=== PATIENT | female | born 1965 | race Caucasian/White ===

== ENCOUNTER → 2018-10-04 | Emergency (ER) | payer BC, MEDICAID ==
[~2018-10-04] VITALS: Ht 152.4 cm; Wt 101.8 kg
[~2018-10-04] MED LIST: ESOM40CA PO; ESOM40CA30 PO; HYDR-3972 PO; HYDR-4383 PO; HYDROcodone/acetaminophen 5mg/325mg tablet PO ONE; METF1000 PO; METF500T PO; MULT-1179 PO; PHEN35TA PO; VITA-268 PO
[2018-10-04 12:23] VITALS: BP 146/85
== END | disposition home or self-care (01) ==
LOC: ER 12:15
DX: S92.321A Displaced fracture of second metatarsal bone, right foot, initial encounter for closed fracture (principal); E11.9 Type 2 diabetes mellitus without complications; Z88.2 Allergy status to sulfonamides; Z79.899 Other long term (current) drug therapy; X58.XXXA Exposure to other specified factors, initial encounter; Y93.89 Activity, other specified; Y92.89 Other specified places as the place of occurrence of the external cause; Y99.8 Other external cause status
CPT/HCPCS: 29515; 73630; 99284

== ENCOUNTER 2018-10-12 11:35 | Outpatient (CLI) | payer BC ==
[~2018-10-12] VITALS: Ht 154.9 cm; Wt 93.4 kg
[~2018-10-12 11:35] MED LIST changes: -HYDROcodone/acetaminophen 5mg/325mg tablet PO ONE
[2018-10-12 11:39] VITALS: BP 130/72
[2018-10-16 16:56] VITALS: BP 130/72
== END 2018-10-12 12:51 | disposition home or self-care (01) ==
LOC: ORTHO 11:35
PROVIDERS: ATTEND Nurse Practitioner Family
DX: S92.321A Displaced fracture of second metatarsal bone, right foot, initial encounter for closed fracture (principal); S93.324A Dislocation of tarsometatarsal joint of right foot, initial encounter; E11.319 Type 2 diabetes mellitus with unspecified diabetic retinopathy without macular edema; K21.9 Gastro-esophageal reflux disease without esophagitis; E78.00 Pure hypercholesterolemia, unspecified; Z90.49 Acquired absence of other specified parts of digestive tract; Z88.2 Allergy status to sulfonamides; Z79.84 Long term (current) use of oral hypoglycemic drugs; W18.09XA Striking against other object with subsequent fall, initial encounter; Y93.89 Activity, other specified; Y92.89 Other specified places as the place of occurrence of the external cause; Y99.8 Other external cause status
CPT/HCPCS: 73620; 99215

== ENCOUNTER 2018-11-16 09:36 | Outpatient (CLI) | payer BC | END 2018-11-16 23:59 | disposition home or self-care (01) | LOC: RAD 09:36 | PROVIDERS: ATTEND Nurse Practitioner Family | DX: S92.321D Displaced fracture of second metatarsal bone, right foot, subsequent encounter for fracture with routine healing (principal); S92.341A Displaced fracture of fourth metatarsal bone, right foot, initial encounter for closed fracture; E11.9 Type 2 diabetes mellitus without complications; Z79.84 Long term (current) use of oral hypoglycemic drugs; X58.XXXA Exposure to other specified factors, initial encounter; Y93.89 Activity, other specified; Y92.89 Other specified places as the place of occurrence of the external cause; Y99.8 Other external cause status | CPT/HCPCS: 73718 ==

== ENCOUNTER 2018-11-28 11:16 | Outpatient (CLI) | payer BC ==
[2018-11-28 11:21] VITALS: BP 136/84
== END 2018-11-28 12:05 | disposition home or self-care (01) ==
LOC: ORTHO 11:16
PROVIDERS: ATTEND Nurse Practitioner Family
DX: S92.321G Displaced fracture of second metatarsal bone, right foot, subsequent encounter for fracture with delayed healing (principal); S93.324D Dislocation of tarsometatarsal joint of right foot, subsequent encounter; S93.14 Subluxation of metatarsophalangeal joint; S93.144D Subluxation of metatarsophalangeal joint of right lesser toe(s), subsequent encounter; M85.871 Other specified disorders of bone density and structure, right ankle and foot; E11.9 Type 2 diabetes mellitus without complications; Z98.890 Other specified postprocedural states; Z88.2 Allergy status to sulfonamides; X58.XXXD Exposure to other specified factors, subsequent encounter
CPT/HCPCS: 73630; 99213; A4590

== ENCOUNTER 2018-12-19 10:22 | Outpatient (CLI) | payer BC ==
[2018-12-19 10:26] VITALS: BP 148/88
== END 2018-12-19 11:27 | disposition home or self-care (01) ==
LOC: ORTHO 10:22
PROVIDERS: ATTEND Nurse Practitioner Family
DX: S92.321G Displaced fracture of second metatarsal bone, right foot, subsequent encounter for fracture with delayed healing (principal); S93.325D Dislocation of tarsometatarsal joint of left foot, subsequent encounter; E11.9 Type 2 diabetes mellitus without complications; Z88.2 Allergy status to sulfonamides; Z79.84 Long term (current) use of oral hypoglycemic drugs; X58.XXXD Exposure to other specified factors, subsequent encounter
CPT/HCPCS: 73630; 99213

== ENCOUNTER 2019-01-10 09:37 | Outpatient (CLI) | payer BC ==
[2019-01-10 09:37] VITALS: BP 125/54
== END 2019-01-10 10:13 | disposition home or self-care (01) ==
LOC: ORTHO 09:37
PROVIDERS: ATTEND Nurse Practitioner Family
DX: S92.321G Displaced fracture of second metatarsal bone, right foot, subsequent encounter for fracture with delayed healing (principal); S93.325D Dislocation of tarsometatarsal joint of left foot, subsequent encounter; M79.89 Other specified soft tissue disorders; M77.31 Calcaneal spur, right foot; M19.071 Primary osteoarthritis, right ankle and foot; E11.9 Type 2 diabetes mellitus without complications; Z88.2 Allergy status to sulfonamides; Z79.84 Long term (current) use of oral hypoglycemic drugs; X58.XXXD Exposure to other specified factors, subsequent encounter
CPT/HCPCS: 73630; 99213

== ENCOUNTER 2019-02-07 09:32 | Outpatient (CLI) | payer BC | END 2019-02-07 10:15 | disposition home or self-care (01) | LOC: ORTHO 09:32 | PROVIDERS: ATTEND Nurse Practitioner Family | DX: S62.33 Displaced fracture of neck of other metacarpal bone (principal); M81.0 Age-related osteoporosis without current pathological fracture; E11.9 Type 2 diabetes mellitus without complications; Z79.899 Other long term (current) drug therapy; Z72.89 Other problems related to lifestyle; Z88.2 Allergy status to sulfonamides; W19.XXXD Unspecified fall, subsequent encounter | CPT/HCPCS: 73630; 99213 ==

== ENCOUNTER 2021-11-26 14:19 | Emergency (ER) | payer BC ==
[~2021-11-26] VITALS: Ht 154.9 cm; Wt 105.0 kg
[~2021-11-26 14:19] MED LIST changes: -ESOM40CA30 PO; +ESOM40CA49 PO
[2021-11-26 15:11] VITALS: BP 114/79
[2021-11-26] MEDS ORDERED: POTASSIUM BICARB 20meq eff tab 20 MEQ TABLET.EFF PO ONE (15:50)
[2021-11-26] MEDS ORDERED: furosemide 20MG tablet PO ONE (15:50)
[2021-11-26] MEDS ORDERED: cephalexin 250mg capsule PO ONE (15:50)
[2021-11-26] MEDS ORDERED: CEPH-585 PO (15:57)
[2021-11-26] MEDS ORDERED: FURO-150 PO (15:57)
[2021-11-26] MEDS ORDERED: POTA-207 PO (15:57)
== END 2021-11-26 16:32 | disposition home or self-care (01) ==
LOC: ER 14:21
DX: I87.2 Venous insufficiency (chronic) (peripheral) (principal); L97.801 Non-pressure chronic ulcer of other part of unspecified lower leg limited to breakdown of skin; R09.89 Other specified symptoms and signs involving the circulatory and respiratory systems; R05.9 Cough, unspecified; I50.9 Heart failure, unspecified; E78.00 Pure hypercholesterolemia, unspecified; K21.9 Gastro-esophageal reflux disease without esophagitis; E11.9 Type 2 diabetes mellitus without complications; Z86.14 Personal history of Methicillin resistant Staphylococcus aureus infection; Z90.89 Acquired absence of other organs; Z90.49 Acquired absence of other specified parts of digestive tract; Z98.890 Other specified postprocedural states; Z88.2 Allergy status to sulfonamides; Z79.2 Long term (current) use of antibiotics; Z79.899 Other long term (current) drug therapy
CPT/HCPCS: 99284

== ENCOUNTER 2024-01-10 11:27 | Inpatient (IN) | payer OTHER, MEDICAID ==
[~2024-01-10] VITALS: Ht 154.9 cm; Wt 111.4 kg
[2024-01-10 11:46] LABS: BASOPHILS # (AUTO) 0.1 X10'3 (0-0.2); BASOPHILS % (AUTO) 0.9 % (0-1); EOSINOPHILS # (AUTO) 0.3 X10'3 (0-0.9); EOSINOPHILS % (AUTO) 3.5 % (0-6); HEMATOCRIT 37.7 % (35.0-45.0); HEMOGLOBIN 12.1 g/dl (12.0-16.0); LYMPHOCYTES # (AUTO) 0.8 X10'3 (1.1-4.8); LYMPHOCYTES % (AUTO) 9.5 % (21-51); MEAN CORPUSCULAR HEMOGLOBIN 28.2 PG (27.0-31.0); MEAN CORPUSCULAR HGB CONC 32.1 g/dL (33.0-36.5); MEAN CORPUSCULAR VOLUME 87.8 FL (78-98); MEAN PLATELET VOLUME 8.2 FL (7.4-10.4); MONOCYTES # (AUTO) 0.4 X10'3 (0-0.9); MONOCYTES % (AUTO) 5.1 % (2-12); NEUTROPHILS # (AUTO) 6.6 X10'3 (1.8-7.7); PLATELET COUNT 294 X10'3 (140-440); RED BLOOD COUNT 4.29 X10'6 (4.20-5.60); RED CELL DISTRIBUTION WIDTH 17.1 % (11.5-14.5); WHITE BLOOD COUNT 8.1 X10'3 (4.5-11.0)
[2024-01-10 12:15] LABS: ALANINE AMINOTRANSFERASE 34 U/L (12-78); ALBUMIN 3.5 G/DL (3.4-5.0); ALBUMIN/GLOBULIN RATIO 0.9 (1.1-1.5); ALKALINE PHOSPHATASE 118 IU/L (46-116); ANION GAP 9 (8-16); ASPARTATE AMINO TRANSFERASE 19 U/L (10-37); BILIRUBIN,TOTAL 0.8 MG/DL (0.1-1.0); BLOOD UREA NITROGEN 37 MG/DL (7-18); BUN/CREATININE RATIO 29.1 (10.0-20.0); CALCIUM 8.9 MG/DL (8.5-10.1); CHLORIDE 108 MMOL/L (99-107); CREATININE 1.27 MG/DL (0.40-0.90); GLUCOSE 161 MG/DL (70-104); POTASSIUM 4.7 MMOL/L (3.5-5.1); PRO BRAIN NATRIURETIC PEPTIDE 2808 PG/ML (0-125); SODIUM 144 MMOL/L (135-145); TOTAL CARBON DIOXIDE 27.1 MMOL/L (24-32); TOTAL PROTEIN 7.5 G/DL (6.4-8.2); eCRCL 36 ML/MIN; eGFR 43 ML/MIN
[2024-01-10] MEDS ORDERED: magnesium hydroxide 30ml (MOM) UD suspension PO PRN (13:50)
[2024-01-10] MEDS ORDERED: mag hydrox/Alum hydrox/simeth 30ml oral suspension PO PRN (13:50)
[2024-01-10] MEDS ORDERED: magnesium 2GM in 50ml NS 50 ML IV PRN (13:50)
[2024-01-10] MEDS ORDERED: magnesium Cl slow-release 64mg tablet PO PRN (13:50)
[2024-01-10] MEDS ORDERED: ondansetron/PF 4mg/2ml inj IV PRN (13:50)
[2024-01-10] MEDS ORDERED: magnesium 4gm in 100ml NS 100 ML IV PRN (13:50)
[2024-01-10] MEDS ORDERED: acetaminophen 325mg tablet PO PRN (13:50)
[2024-01-10] MEDS ORDERED: potassium Cl 20 mEq SR tablet PO PRN ×2 (13:50)
[2024-01-10] MEDS ORDERED: potassium Cl 40MEQ/1/2NS 520ml 520 ML IV PRN (13:50)
[2024-01-10] MEDS: digoxin 250mcg (0.25mg) tablet PO STA (13:51)
[2024-01-10] MEDS: furosemide 10 MG/1 ML 10ml inj IV STA (14:14)
[2024-01-10] MEDS: digoxin 125mcg (0.125mg) tablet PO STA (14:14)
[2024-01-10] MEDS ORDERED: ONDA8TAB13 PO (14:21)
[2024-01-10] MEDS ORDERED: FURO40TA4 PO (14:21)
[2024-01-10] MEDS ORDERED: ATOR40TA72 PO (14:21)
[2024-01-10] MEDS ORDERED: RIVA20TA PO (14:21)
[2024-01-10] MEDS ORDERED: METO-411 PO (14:21)
[2024-01-10] MEDS ORDERED: LAN0.125T PO (14:21)
[2024-01-10 14:23] LABS: MAGNESIUM 2.5 MG/DL (1.5-2.4)
[2024-01-10] MEDS ORDERED: rivaroxaban 20mg tablet PO SCH (14:40)
[2024-01-10] MEDS ORDERED: dextrose 50%-water 50ml dispensing syringe IV PRN ×2 (15:05)
[2024-01-10] MEDS ORDERED: DEXTROSE 15 GM of carb/4 tabs (each vial/BOTTLE has 4 tablets) PO PRN ×2 (15:05)
[2024-01-10] MEDS ORDERED: glucagon, human recombinant 1mg kit SUBCUT PRN (15:05)
[2024-01-10 15:24] LABS: HEMOGLOBIN A1C 6.5 % (4.5-6.2)
[2024-01-10] MEDS: MESSAGE TO PHARMACY PO ONE (15:52)
[2024-01-10 16:02] LABS: CHOL/HDL RATIO 2.5 (0.00-4.99); CHOLESTEROL 134 MG/DL (0-200); HDL CHOLESTEROL 53 MG/DL (35-60); LDL CHOLESTEROL 62 MG/DL (50-100); THYROID STIMULATING HORMONE 3.35 ulU/ml (0.34-4.50); TRIGLYCERIDES 83 MG/DL (20-135)
[2024-01-10 19:37] VITALS: BP 116/83; PULSE 100; RESP 18; TEMP 97.5; O2SAT 98
[2024-01-10] MEDS: K and/or MAG REPLACEMENT MC SCH (20:00)
[2024-01-10] MEDS ORDERED: MULT-1085 PO (20:12)
[2024-01-10] MEDS ORDERED: FLU VACC QS2023-24(6MOS UP)/PF 60 MCG/0.5 ML SYRINGE IM ONE (20:15)
[2024-01-10 20:30] VITALS: RESP 18; O2SAT 98
[2024-01-10] MEDS: furosemide 10 MG/1 ML 10ml inj IV SCH (20:49)
[2024-01-10] MEDS: docusate sod 100mg capsule PO SCH (20:49)
[2024-01-10] MEDS: insulin glargine (Lantus) pen - multi-dose SQ SCH (21:00)
[2024-01-10 22:00] VITALS: BP 112/83; PULSE 84; RESP 19; TEMP 97.8; O2SAT 97
[2024-01-11] VITALS (10 sets, daily range): BP systolic 96–123; BP diastolic 59–76; PULSE 83–97; RESP 16–22; TEMP 97.1–98.1; O2SAT 95–100
[2024-01-11 06:09] LABS: BASOPHILS % (AUTO) 0.6 % (0-1); EOSINOPHILS # (AUTO) 0.3 X10'3 (0-0.9); EOSINOPHILS % (AUTO) 4.2 % (0-6); HEMATOCRIT 35.7 % (35.0-45.0); HEMOGLOBIN 11.7 g/dl (12.0-16.0); LYMPHOCYTES # (AUTO) 0.9 X10'3 (1.1-4.8); LYMPHOCYTES % (AUTO) 11.7 % (21-51); MEAN CORPUSCULAR HEMOGLOBIN 28.8 PG (27.0-31.0); MEAN CORPUSCULAR HGB CONC 32.7 g/dL (33.0-36.5); MEAN PLATELET VOLUME 8.3 FL (7.4-10.4); MONOCYTES # (AUTO) 0.6 X10'3 (0-0.9); MONOCYTES % (AUTO) 7.2 % (2-12); NEUTROPHILS # (AUTO) 5.8 X10'3 (1.8-7.7); NEUTROPHILS % (AUTO) 76.3 % (42-75); PLATELET COUNT 257 X10'3 (140-440); RED BLOOD COUNT 4.05 X10'6 (4.20-5.60); RED CELL DISTRIBUTION WIDTH 16.6 % (11.5-14.5); WHITE BLOOD COUNT 7.6 X10'3 (4.5-11.0)
[2024-01-11 06:26] LABS: ALBUMIN 3.1 G/DL (3.4-5.0); ANION GAP 5 (8-16); BLOOD UREA NITROGEN 35 MG/DL (7-18); BUN/CREATININE RATIO 29.2 (10.0-20.0); CALCIUM 8.6 MG/DL (8.5-10.1); CHLORIDE 104 MMOL/L (99-107); GLUCOSE 112 MG/DL (70-104); MAGNESIUM 2.5 MG/DL (1.5-2.4); POTASSIUM 4.1 MMOL/L (3.5-5.1); SODIUM 143 MMOL/L (135-145); TOTAL CARBON DIOXIDE 33.6 MMOL/L (24-32); eCRCL 39 ML/MIN; eGFR 46 ML/MIN
[2024-01-11] MEDS: rivaroxaban 20mg tablet PO SCH (08:51)
[2024-01-11] MEDS: digoxin 125mcg (0.125mg) tablet PO SCH (08:53)
[2024-01-11] MEDS: atorvastatin 20mg tablet PO SCH (08:53)
[2024-01-11] MEDS: metoprolol succinate 25mg (24-HOUR) SR. Tablet PO SCH (08:54)
[2024-01-11] MEDS: furosemide 40mg/4ml inj IV SCH ×2 (08:55→13:30)
[2024-01-11] MEDS: FLU VACC QS2023-24(6MOS UP)/PF 60 MCG/0.5 ML SYRINGE IM ONE (10:16)
[2024-01-11] MEDS: pantoprazole 40mg Tablet.DR PO SCH (13:30)
[2024-01-12] VITALS (7 sets, daily range): BP systolic 100–135; BP diastolic 57–71; PULSE 71–99; RESP 14–21; TEMP 97.9–98.4; O2SAT 93–100
[2024-01-12 06:25] LABS: BASOPHILS % (AUTO) 0.5 % (0-1); EOSINOPHILS # (AUTO) 0.3 X10'3 (0-0.9); EOSINOPHILS % (AUTO) 3.4 % (0-6); HEMATOCRIT 38.2 % (35.0-45.0); HEMOGLOBIN 12.7 g/dl (12.0-16.0); LYMPHOCYTES # (AUTO) 0.8 X10'3 (1.1-4.8); LYMPHOCYTES % (AUTO) 10.1 % (21-51); MEAN CORPUSCULAR HEMOGLOBIN 28.7 PG (27.0-31.0); MEAN CORPUSCULAR HGB CONC 33.2 g/dL (33.0-36.5); MEAN CORPUSCULAR VOLUME 86.3 FL (78-98); MEAN PLATELET VOLUME 8.1 FL (7.4-10.4); MONOCYTES # (AUTO) 0.6 X10'3 (0-0.9); MONOCYTES % (AUTO) 7.7 % (2-12); NEUTROPHILS # (AUTO) 5.8 X10'3 (1.8-7.7); NEUTROPHILS % (AUTO) 78.3 % (42-75); PLATELET COUNT 254 X10'3 (140-440); RED BLOOD COUNT 4.43 X10'6 (4.20-5.60); RED CELL DISTRIBUTION WIDTH 16.3 % (11.5-14.5); WHITE BLOOD COUNT 7.5 X10'3 (4.5-11.0)
[2024-01-12 06:34] LABS: ALBUMIN 2.9 G/DL (3.4-5.0); ANION GAP 8 (8-16); BLOOD UREA NITROGEN 31 MG/DL (7-18); BUN/CREATININE RATIO 28.2 (10.0-20.0); CALCIUM 9.1 MG/DL (8.5-10.1); CHLORIDE 103 MMOL/L (99-107); GLUCOSE 122 MG/DL (70-104); MAGNESIUM 2.2 MG/DL (1.5-2.4); POTASSIUM 4.1 MMOL/L (3.5-5.1); SODIUM 141 MMOL/L (135-145); TOTAL CARBON DIOXIDE 29.6 MMOL/L (24-32); eCRCL 42 ML/MIN; eGFR 51 ML/MIN
[2024-01-12] MEDS ORDERED: pantoprazole 40mg Tablet.DR PO SCH (07:30)
[2024-01-13 02:00] VITALS: BP 100/70; PULSE 62; RESP 17; TEMP 97.1; O2SAT 92
[2024-01-13 06:00] VITALS: BP 117/68; PULSE 97; RESP 17; TEMP 97.7; O2SAT 100
[2024-01-13 06:48] LABS: BASOPHILS % (AUTO) 0.5 % (0-1); EOSINOPHILS # (AUTO) 0.2 X10'3 (0-0.9); EOSINOPHILS % (AUTO) 2.5 % (0-6); HEMATOCRIT 38.1 % (35.0-45.0); HEMOGLOBIN 12.7 g/dl (12.0-16.0); LYMPHOCYTES # (AUTO) 0.9 X10'3 (1.1-4.8); LYMPHOCYTES % (AUTO) 9.7 % (21-51); MEAN CORPUSCULAR HEMOGLOBIN 28.7 PG (27.0-31.0); MEAN CORPUSCULAR HGB CONC 33.3 g/dL (33.0-36.5); MEAN CORPUSCULAR VOLUME 86.2 FL (78-98); MEAN PLATELET VOLUME 8.5 FL (7.4-10.4); MONOCYTES # (AUTO) 0.8 X10'3 (0-0.9); NEUTROPHILS # (AUTO) 6.9 X10'3 (1.8-7.7); NEUTROPHILS % (AUTO) 78.3 % (42-75); PLATELET COUNT 276 X10'3 (140-440); RED BLOOD COUNT 4.42 X10'6 (4.20-5.60); RED CELL DISTRIBUTION WIDTH 16.2 % (11.5-14.5); WHITE BLOOD COUNT 8.9 X10'3 (4.5-11.0)
[2024-01-13 06:56] LABS: ALBUMIN 2.9 G/DL (3.4-5.0); ANION GAP 9 (8-16); BLOOD UREA NITROGEN 34 MG/DL (7-18); CALCIUM 9.1 MG/DL (8.5-10.1); CHLORIDE 102 MMOL/L (99-107); CREATININE 1.31 MG/DL (0.40-0.90); GLUCOSE 185 MG/DL (70-104); MAGNESIUM 2.2 MG/DL (1.5-2.4); POTASSIUM 3.6 MMOL/L (3.5-5.1); SODIUM 141 MMOL/L (135-145); eCRCL 35 ML/MIN; eGFR 42 ML/MIN
[2024-01-13 07:58] VITALS: RESP 17; O2SAT 100
[2024-01-13] MEDS: insulin Lispro (HumaLOG) vial - multi-dose SQ SCH (08:32)
[2024-01-13 10:40] LABS: HBSAG SCREEN Negative (Negative); HEP B CORE AB, IGM Negative (Negative); HEP B CORE AB, TOT Negative (Negative)
[2024-01-13] MEDS ORDERED: RIVA20TA PO (10:50)
[2024-01-13] MEDS ORDERED: LAN0.125T PO (10:50)
[2024-01-13] MEDS ORDERED: ONDA8TAB13 PO (10:50)
[2024-01-13] MEDS ORDERED: PANT40TA54 PO (10:50)
[2024-01-13] MEDS ORDERED: METO-411 PO (10:50)
[2024-01-13] MEDS ORDERED: ATOR40TA72 PO (10:50)
[2024-01-13] MEDS ORDERED: FURO40TA4 PO (10:58)
[2024-01-13 11:00] VITALS: BP 129/78; PULSE 97; RESP 18; TEMP 97.7; O2SAT 97
== END 2024-01-13 12:21 | disposition home or self-care (01) | DRG 292 ==
LOC: ER 11:27 → ED HOLD 13:51 → PCU 3S 19:26
PROVIDERS: ADMIT Internal Medicine; ATTEND Internal Medicine
DX: I50.33 Acute on chronic diastolic (congestive) heart failure (principal); Z68.42 Body mass index [BMI] 45.0-49.9, adult; I48.0 Paroxysmal atrial fibrillation; I08.1 Rheumatic disorders of both mitral and tricuspid valves; Z66 Do not resuscitate; I27.20 Pulmonary hypertension, unspecified; E11.319 Type 2 diabetes mellitus with unspecified diabetic retinopathy without macular edema; E66.01 Morbid (severe) obesity due to excess calories; E78.00 Pure hypercholesterolemia, unspecified; K21.9 Gastro-esophageal reflux disease without esophagitis; Z90.49 Acquired absence of other specified parts of digestive tract; Z81.3 Family history of other psychoactive substance abuse and dependence; Z63.72 Alcoholism and drug addiction in family; Z86.14 Personal history of Methicillin resistant Staphylococcus aureus infection; Z88.2 Allergy status to sulfonamides; Z79.899 Other long term (current) drug therapy; Z83.3 Family history of diabetes mellitus; Z79.01 Long term (current) use of anticoagulants
CPT/HCPCS: 36415; 71045; 80048; 80053; 80061; 82948; 83036; 83735; 83880; 84443; 84484; 85025; 86704; 86705; 87081; 87340; 90686; 93005; 93306; 99285; A6250; A6449; G0378; J1815; J1940

== ENCOUNTER 2024-05-07 10:07 | Emergency (ER) | payer OTHER, MEDICAID ==
[~2024-05-07] VITALS: Ht 154.9 cm; Wt 118.6 kg
[~2024-05-07 10:07] MED LIST changes: +ATOR40TA72 PO; -ESOM40CA PO; -ESOM40CA49 PO; +FURO40TA4 PO; -HYDR-3972 PO; -HYDR-4383 PO; +LAN0.125T PO; -METF500T PO; +METO-411 PO; +MULT-1085 PO; -MULT-1179 PO; +ONDA8TAB13 PO; +PANT40TA54 PO; -PHEN35TA PO; +RIVA20TA PO; -VITA-268 PO
[2024-05-07 10:16] VITALS: TEMP 98
[2024-05-07 12:48] VITALS: BP 109/65; PULSE 89; O2SAT 97
[2024-05-07] MEDS ORDERED: NAPR-56 PO (16:08)
[2024-05-07 16:34] VITALS: RESP 16
[2024-05-07] MEDS: ketorolac trometh. 30mg/ml inj. IM ONE (16:34)
== END 2024-05-07 16:56 | disposition home or self-care (01) ==
LOC: ER 10:07
DX: M25.561 Pain in right knee (principal); E08.319 Diabetes mellitus due to underlying condition with unspecified diabetic retinopathy without macular edema; I50.9 Heart failure, unspecified; E78.00 Pure hypercholesterolemia, unspecified; K21.9 Gastro-esophageal reflux disease without esophagitis; M19.90 Unspecified osteoarthritis, unspecified site; Z88.2 Allergy status to sulfonamides; Z79.899 Other long term (current) drug therapy; Z98.890 Other specified postprocedural states; Z90.49 Acquired absence of other specified parts of digestive tract
CPT/HCPCS: 73564; 96372; 99283; J1885; A6449

== ENCOUNTER 2024-06-11 07:07 | Day surgery (SDC) | payer OTHER, MEDICAID ==
[2024-06-08 12:18] LABS: BASOPHILS # (AUTO) 0.1 X10'3 (0-0.2); BASOPHILS % (AUTO) 0.9 % (0-1); EOSINOPHILS # (AUTO) 0.1 X10'3 (0-0.9); EOSINOPHILS % (AUTO) 1.8 % (0-6); HEMATOCRIT 39.2 % (35.0-45.0); HEMOGLOBIN 12.6 g/dl (12.0-16.0); LYMPHOCYTES # (AUTO) 0.8 X10'3 (1.1-4.8); LYMPHOCYTES % (AUTO) 9.8 % (21-51); MEAN CORPUSCULAR HEMOGLOBIN 26.3 PG (27.0-31.0); MEAN CORPUSCULAR VOLUME 82.1 FL (78-98); MEAN PLATELET VOLUME 8.2 FL (7.4-10.4); MONOCYTES # (AUTO) 0.5 X10'3 (0-0.9); MONOCYTES % (AUTO) 5.9 % (2-12); NEUTROPHILS # (AUTO) 6.7 X10'3 (1.8-7.7); NEUTROPHILS % (AUTO) 81.6 % (42-75); PLATELET COUNT 257 X10'3 (140-440); RED BLOOD COUNT 4.78 X10'6 (4.20-5.60); RED CELL DISTRIBUTION WIDTH 17.5 % (11.5-14.5); WHITE BLOOD COUNT 8.2 X10'3 (4.5-11.0)
[2024-06-08 12:24] LABS: ANION GAP 9 (8-16); BLOOD UREA NITROGEN 31 MG/DL (7-18); BUN/CREATININE RATIO 20.7 (10.0-20.0); CALCIUM 9.3 MG/DL (8.5-10.1); CHLORIDE 101 MMOL/L (99-107); GLUCOSE 161 MG/DL (70-104); POTASSIUM 3.4 MMOL/L (3.5-5.1); SODIUM 140 MMOL/L (135-145); TOTAL CARBON DIOXIDE 30.1 MMOL/L (24-32); eGFR 36 ML/MIN
[2024-06-08 12:28] LABS: APTT 26 SECONDS (22-32)
[2024-06-11] VITALS (15 sets, daily range): BP systolic 82–127; BP diastolic 40–78; PULSE 71–90; RESP 16; TEMP 98.2; O2SAT 92–95
[~2024-06-11] VITALS: Ht 154.9 cm; Wt 120.5 kg
[~2024-06-11 07:07] MED LIST changes: +ONDA-245 PO; -ONDA8TAB13 PO
[2024-06-11] MEDS ORDERED: POTA-366 PO (07:46)
[2024-06-11] MEDS ORDERED: ATOR40TA PO (07:48)
[2024-06-11] MEDS ORDERED: DIGO125T PO (07:48)
[2024-06-11] MEDS ORDERED: FURO-149 PO (07:49)
[2024-06-11] MEDS ORDERED: ESOM20CA28 PO (07:50)
[2024-06-11] MEDS ORDERED: METO100T7 PO (07:50)
[2024-06-11] MEDS ORDERED: RIVA20TA PO (07:51)
[2024-06-11] MEDS: diphenhydrAMINE 25mg capsule PO PRN (08:36)
[2024-06-11] MEDS: LORazepam 0.5 MG tablet PO PRN (08:37)
[2024-06-11] MEDS: acetylcysteine 200 MG/ml 4ml vial PO ONE ×2 (08:40→18:03)
[2024-06-11] MEDS: sodium bicarbonate 1meq/ml syr 150 ML in dextrose 5%-water 1,000 ML IV ONE (08:41)
[2024-06-11] MEDS ORDERED: LIDOcaine 1% (10mg/ml) 2ml vial ONE (13:00)
[2024-06-11] MEDS ORDERED: verapamil 2.5 mg/ml inj IV ONE (13:00)
[2024-06-11] MEDS ORDERED: nitroGLYCERIN 500mcg/5mL D5W 5 ML IV ONE (13:01)
[2024-06-11] MEDS ORDERED: iohexol 350MG/ML 100ml bottle IV ONE (13:01)
[2024-06-11] MEDS ORDERED: iohexol 350 MG/ML 50ML vial IV ONE (13:01)
[2024-06-11] MEDS ORDERED: heparin 1,000unit/ml 10ml vial 10 ML ONE (13:01)
[2024-06-11] MEDS ORDERED: fentaNYL/PF 50MCG/1 ML 2ML syringe ONE (13:01)
[2024-06-11] MEDS ORDERED: midazolam 1 mg/ML 2ml injection ONE (13:01)
[2024-06-11 14:12] LABS: ISTAT HGB ART 12.2 g/dl (12.0-16.0); ISTAT Hct ART 36 %PCV (35-45); ISTAT O2 SATURATION ARTERIAL 92 % (95-98); ISTAT SOURCE ART
[2024-06-11] MEDS ORDERED: HYDROcodone/acetaminophen 10/325mg tab PO PRN (14:45)
[2024-06-11] MEDS ORDERED: furosemide 40mg/4ml inj IV ONE (14:45)
[2024-06-11] MEDS ORDERED: HYDROcodone/acetaminophen 5mg/325mg tablet PO PRN (14:45)
[2024-06-11] MEDS ORDERED: normal saline 1000ml 1,000 ML IV SCH (14:45)
[2024-06-11] MEDS: potassium Cl 20 mEq SR tablet PO ONE (15:29)
[2024-06-11] MEDS: furosemide 40mg/4ml inj IV ONE ×2 (17:26→17:51)
[2024-06-13 06:06] LABS: ISTAT HGB MIX 12.2 g/dl (12.0-16.0); ISTAT Hct MIX 36 %PCV (35-45); ISTAT O2 SATURATION MIX VENOUS 56 % (60-80); ISTAT SOURCE VEN
== END 2024-06-11 19:00 | disposition home or self-care (01) ==
LOC: SSTAY O 07:07
PROVIDERS: ATTEND Internal Medicine Cardiovascular Disease
DX: I34.2 Nonrheumatic mitral (valve) stenosis (principal); I25.10 Atherosclerotic heart disease of native coronary artery without angina pectoris; I11.0 Hypertensive heart disease with heart failure; I50.32 Chronic diastolic (congestive) heart failure; E11.9 Type 2 diabetes mellitus without complications; E78.5 Hyperlipidemia, unspecified; I48.0 Paroxysmal atrial fibrillation; E66.9 Obesity, unspecified; G47.30 Sleep apnea, unspecified; Z79.01 Long term (current) use of anticoagulants; Z79.84 Long term (current) use of oral hypoglycemic drugs; Z79.899 Other long term (current) drug therapy; Z90.49 Acquired absence of other specified parts of digestive tract; Z98.891 History of uterine scar from previous surgery; Z98.890 Other specified postprocedural states; Z88.2 Allergy status to sulfonamides
CPT/HCPCS: 36415; 76937; 80048; 82803; 82948; 85014; 85025; 85610; 85730; 93005; 93460; 99152; 99153; J1644; J1940; J2250; J3010; J3490; J7030; J7070; Q0163; Q9967; A6258; A6402; C1725; C1751; C1894

== ENCOUNTER 2024-08-16 08:28 | Outpatient (CLI) | payer OTHER, MEDICAID ==
[~2024-08-16 08:28] MED LIST changes: +ATOR40TA PO; -ATOR40TA72 PO; +DIGO125T PO; +ESOM20CA28 PO; +FURO-149 PO; -FURO40TA4 PO; -LAN0.125T PO; -METO-411 PO; +METO100T7 PO; -MULT-1085 PO; -ONDA-245 PO; -PANT40TA54 PO; +POTA-366 PO
[2024-08-16 09:13] LABS: ALBUMIN 2.8 G/DL (3.4-5.0); ANION GAP 8 (8-16); BLOOD UREA NITROGEN 24 MG/DL (7-18); BUN/CREATININE RATIO 15.2 (10.0-20.0); CHLORIDE 103 MMOL/L (99-107); CREATININE 1.58 MG/DL (0.40-0.90); GLUCOSE 120 MG/DL (70-104); POTASSIUM 3.8 MMOL/L (3.5-5.1); SODIUM 137 MMOL/L (135-145); TOTAL CARBON DIOXIDE 25.8 MMOL/L (24-32); eGFR 33 ML/MIN
== END 2024-08-16 23:59 | disposition home or self-care (01) ==
LOC: VAS 08:28
PROVIDERS: ATTEND Thoracic Surgery (Cardiothoracic Vascular Surgery)
DX: I34.2 Nonrheumatic mitral (valve) stenosis (principal); J90 Pleural effusion, not elsewhere classified
CPT/HCPCS: 36415; 71250; 80048; 93880